=== PATIENT | female | born 1975 | race Caucasian/White ===

== ENCOUNTER → 2021-09-09 | Day surgery (SDC) | payer OTHER ==
[~2021-09-09] MED LIST: CYCL10TA19 PO; HYDR-2769 PO; HYDR25TA PO; LEVO50TA5 PO; METO-239 PO
[2021-09-09 15:18] VITALS: BP 158/102
[2021-09-09 16:12] LABS: AMPHETAMINE/METHAMPHETAMINE NEG (NEG); BARBITURATES NEG (NEG); BENZODIAZEPINES NEG (NEG); CANNABINOIDS POS (NEG); COCAINE NEG (NEG); METHADONE NEG (NEG); OPIATES POS (NEG); PHENCYCLIDINE NEG (NEG)
== END | disposition home or self-care (01) ==
LOC: SURG 15:10
PROVIDERS: ATTEND Anesthesiology
DX: G90.521 Complex regional pain syndrome I of right lower limb (principal); I10 Essential (primary) hypertension; M79.2 Neuralgia and neuritis, unspecified; F11.90 Opioid use, unspecified, uncomplicated; Z79.899 Other long term (current) drug therapy; Z98.890 Other specified postprocedural states
CPT/HCPCS: 36415; 80307; 99204; G0463